=== PATIENT | male | born 1940 | race Asian ===

== ENCOUNTER 2019-11-30 12:07 | Emergency (ER) | payer MEDICARE, OTHER ==
[~2019-11-30] VITALS: Ht 165.1 cm; Wt 65.8 kg
--- NOTE | 2019-11-30 12:18 | NUR ---
ED Nurse Note: pt ambulated to ed c/o right thumb laceration s/p finger benig slammed by door. Finger is actively bleeding. dressed in triage and controlled bleeding.
[2019-11-30 12:19] VITALS: BP 193/93
[2019-11-30] MEDS ORDERED: Tetanus/Diptheria/Pertussis IM ONE (13:00)
[2019-11-30] MEDS ORDERED: Lidocaine 1% Plain 30 ml INJ ONE ×2 (13:14→13:15)
[2019-11-30] MEDS ORDERED: Surgicel 4in x 8in TOPIC ONE ×2 (13:15→14:15)
--- NOTE | 2019-11-30 13:31 | NUR ---
ED Nurse Note: x-ray at bedside done.
--- NOTE | 2019-11-30 14:00 | Diagnostic Imaging Report ---
EXAM: XR Right Fingers, 2 or More Views CLINICAL HISTORY: TRAUMA TECHNIQUE: Frontal, lateral and oblique views of the fingers of the right hand. COMPARISON: No relevant prior studies available. FINDINGS: Bones/joints: No acute fracture. Osteopenic. Slight deformity of the distal radial metaphysis appears to be chronic, likely old fracture. 1.8 cm in size expansile lesion dorsal tip of the radius with chondroid type matrix. No dislocation. Soft tissues: Soft tissue irregularity of distal thumb may be laceration. No radiopaque foreign body. IMPRESSION: 1. Osteopenic. No definite acute fracture or malalignment. 2. Soft tissue irregularity of distal thumb may be laceration. 3. Slight deformity of the distal radial metaphysis appears to be chronic, likely old fracture. 4. 1.8 cm in size expansile lesion dorsal tip of the radius with chondroid type matrix. This does not appear to be particularly aggressive. Differential may include chronic posttraumatic remodeling, osteochondroma, though somewhat atypical appearance. Consider CT imaging.
[2019-11-30 14:19] VITALS: BP 188/95
--- NOTE | 2019-11-30 14:30 | NUR ---
clinicals faxed to [facility] and spoke to [facility] transfer cordinator. per melinda she will call us back
--- NOTE | 2019-11-30 14:50 | Emergency Room Report ---
History of Present Illness General Chief Complaint: Laceration Source: Significant Other (Josette Topete) Present Illness HPI 79-year-old male who reports not having any past medical history not taking any medication here due to a laceration the right thumb. Patient first reported that it happened after slamming the door however told me that happened with a knife. Patient refuses bleeding and a spiral 2 cm laceration noted on right patient has full range of motion of the affected area. Denies any tingling and numbness. Patient is neurovascularly intact. Has not taken medication for symptom relief. Patient already has a drops of blood coming in here. Surgicel was applied to minimize the bleeding. Denies all other injuries. Denies chest pain, shortness of breath, headache and dizziness. Translation services were contacted. Patient understands that this needs a higher level of care and needs to be repaired by a specialist. Patient does not know the Tdap status and Tdap was given here today (Josette Topete) Allergies: Coded Allergies: No Known Allergies (Unverified , 11/30/19) COVID-19 Screening Contact w/high risk pt: No Recent Travel to affected area: No Experienced COVID-19 symptoms?: No COVID-19 Testing performed ASSEMBLY INSPECTOR: No (Josette Topete) Patient History Past Medical History: see triage record Past Surgical History: none Pertinent Family History: none Immunizations: UTD Reviewed Nursing Documentation: PMH: Agreed; PSxH: Agreed (Josette Topete) Nursing Documentation-PMH Past Medical History: No Stated History (Josette Topete) Review of Systems All Other Systems: negative except mentioned in HPI (Josette Topete) Physical Exam Vital Signs Date Time Temp Pulse Resp B/P (MAP) Pulse Ox O2 Delivery O2 Flow Rate FiO2 11/30/19 12:09 97.9 80 16 193/93 (126) 99 Room Air Sp02 EP Interpretation: reviewed, normal General Appearance: no apparent distress, alert, GCS 15, non-toxic Head: normocephalic, atraumatic Eyes: bilateral eye normal inspection, bilateral eye PERRL ENT: hearing grossly normal, normal pharynx, no angioedema, normal voice Neck: full range of motion, supple/symm/no masses Respiratory: chest non-tender, lungs clear, normal breath sounds, no rhonchi, no respiratory distress, no retraction, no wheezing, speaking full sentences Cardiovascular #1: regular rate, rhythm, no edema, no murmur Cardiovascular #2: 2+ carotid (R), 2+ carotid (L), 2+ radial (R), 2+ radial (L) Gastrointestinal: normal bowel sounds, non tender, soft, non-distended, no guarding, no rebound Genitourinary: no CVA tenderness Musculoskeletal: back normal, other - Deep laceration right thumb with profuse amount of bleeding into the muscle Neurologic: alert, motor strength/tone normal, oriented x3, sensory intact, responsive, speech normal Psychiatric: judgement/insight normal, memory normal, mood/affect normal, no suicidal/homicidal ideation Skin: laceration - right thumb to the muscle, spiral Lymphatic: no adenopathy (Josette Topete) Medical Decision Making PA Attestation All diagnoses and treatment plans were reviewed and discussed with my supervising physician Dr. Bar (Josette Topete) PA Attestation I participated in the care of this patient along with KIRBY Gutierrez Briefly, this is a 79-year-old male presenting for evaluation of laceration to his thumb. Patient is right-hand dominant. Unclear how the injury actually occurred. He initially reported injury in a car door and then with the use of an community leader phone told KIRBY Gutierrez it occurred with a knife. Patient was given antibiotics. Complex laceration involving his dominant hand. Unable to arrange for orthopedic or plastic surgery evaluation. He will require hand consult and transfer to [facility]. (Celestino Bar MD) Diagnostic Impression: Primary Impression: Laceration of thumb with damage to nail ER Course 79-year-old male who reports not having any past medical history not taking any medication here due to a laceration the right thumb. Patient first reported that it happened after slamming the door however told me that happened with a knife. Patient refuses bleeding and a spiral 2 cm laceration noted on right patient has full range of motion of the affected area. Denies any tingling and numbness. Patient is neurovascularly intact. Has not taken medication for symptom relief. Patient already has a drops of blood coming in here. Surgicel was applied to minimize the bleeding. Denies all other injuries. Denies chest pain, shortness of breath, headache and dizziness. Translation services were contacted. Patient understands that this needs a higher level of care and needs to be repaired by a specialist. Patient does not know the Tdap status and Tdap was given here today Ddx considered but are not limited to : Superficial laceration, deep laceration , tendon involvement with laceration, laceration with foreign body Vital signs: are WNL, pt. is afebrile H&PE are most consistent with: Deep laceration right thumb into the muscle ORDERS: Hand x-ray, CBC, CMP, PT PTT INR, ED INTERVENTIONS: Tdap, Ancef Patient to be transferred to [facility] with diagnosis of deep laceration of right thumb for higher level of care under supervision of : Yosvany pt stable at time of transfer (Josette Topete) Other X-Ray Diagnostic Results Other X-Ray Diagnostic Results : X-Ray ordered: right finger # of Views/Limited Vs Complete: 3 View Indication: Pain EP Interpretation: Yes PA Xray: Interpretation reviewed, by supervising MD, and agrees with findings. Interpretation: no dislocation, no soft tissue swelling, no fractures Impression: No acute disease Electronically Signed by: Josette ORR Scribe Text FINDINGS: Bones/joints: No acute fracture. Osteopenic. Slight deformity of the distal radial metaphysis appears to be chronic, likely old fracture. 1.8 cm in size expansile lesion dorsal tip of the radius with chondroid type matrix. No dislocation. Soft tissues: Soft tissue irregularity of distal thumb may be laceration. No radiopaque foreign body. IMPRESSION: 1. Osteopenic. No definite acute fracture or malalignment. 2. Soft tissue irregularity of distal thumb may be laceration. 3. Slight deformity of the distal radial metaphysis appears to be chronic, likely old fracture. 4. 1.8 cm in size expansile lesion dorsal tip of the radius with chondroid type matrix. This does not appear to be particularly aggressive. Differential may include chronic posttraumatic remodeling, osteochondroma, though somewhat atypical appearance. Consider CT imaging. (Josette Topete) Last Vital Signs Date Time Temp Pulse Resp B/P (MAP) Pulse Ox O2 Delivery O2 Flow Rate FiO2 11/30/19 12:19 97.9 89 16 193/93 99 Room Air (Josette Topete) Disposition: SHORT-TERM HOSP Condition: Serious Scripts No Active Prescriptions or Reported Meds Referrals: NON PHYSICIAN (PCP) Josette Topete Nov 30, 2019 14:50 Celestino Bar MD Nov 30, 2019 15:16
[2019-11-30 14:51] LABS: BASOPHILS % (AUTO) 0.7 % (0.0-2.0); EOSINOPHILS % (AUTO) 0.2 % (0.0-3.0); HEMATOCRIT 48.2 % (42.0-52.0); HEMOGLOBIN 16.2 G/DL (14.2-18.0); LYMPHOCYTES % (AUTO) 18.2 % (20.0-45.0); MEAN CORPUSCULAR VOLUME 99 FL (80-99); MONOCYTES % (AUTO) 6.3 % (1.0-10.0); NEUTROPHILS % (AUTO) 74.5 % (45.0-75.0); PLATELET COUNT 240 K/UL (150-450); RED BLOOD COUNT 4.85 M/UL (4.70-6.10); WHITE BLOOD COUNT 11.3 K/UL (4.8-10.8)
[2019-11-30 15:01] LABS: ANION GAP 9 mmol/L (5-15); BLOOD UREA NITROGEN 21 mg/dL (7-18); CALCIUM 8.7 MG/DL (8.5-10.1); CARBON DIOXIDE 26 MMOL/L (21-32); CHLORIDE 103 MMOL/L (98-107); CREATININE 1.4 MG/DL (0.55-1.30); POTASSIUM 4.2 MMOL/L (3.5-5.1); SODIUM 138 MMOL/L (136-145)
[2019-11-30 15:04] LABS: INR 0.9 (0.9-1.1)
[2019-11-30 15:06] LABS: ALANINE AMINOTRANSFERASE 23 U/L (12-78); ALBUMIN 3.5 G/DL (3.4-5.0); ALBUMIN/GLOBULIN RATIO 0.8 (1.0-2.7); ALKALINE PHOSPHATASE 85 U/L (46-116); ASPARTATE AMINO TRANSFERASE 15 U/L (15-37); BILIRUBIN,TOTAL 0.4 MG/DL (0.2-1.0)
--- NOTE | 2019-11-30 15:27 | NUR ---
ED Nurse Note: Pt appears restless, constantly walking in and out of room
--- NOTE | 2019-11-30 15:45 | NUR ---
[facility] will admit patient requesting covid-19 testing before transfer
[2019-11-30 16:22] VITALS: BP 180/95
--- NOTE | 2019-11-30 16:46 | NUR ---
ED Nurse Note: Pt waiting in room on his phone calm, comfortable. vss
--- NOTE | 2019-11-30 16:50 | NUR ---
ED Nurse Note: utilized [employer] to translate pt care, barrel rifler operator ID: [id number]
[2019-11-30 17:01] VITALS: BP 177/90
--- NOTE | 2019-11-30 17:08 | NUR ---
ED Nurse Note: [facility] at bedside to hand picker pt and transfer to [facility].
[2019-11-30 17:10] VITALS: BP 159/86
== END 2019-11-30 17:12 | disposition short-term general hospital (02) ==
LOC: EMR 12:39
DX: S61.111A Laceration without foreign body of right thumb with damage to nail, initial encounter (principal); M85.841 Other specified disorders of bone density and structure, right hand; Z23 Encounter for immunization; X58.XXXA Exposure to other specified factors, initial encounter; Y92.9 Unspecified place or not applicable
CPT/HCPCS: 36415; 73140; 80053; 85025; 85610; 85730; 86850; 86900; 86901; 90471; 90715; 96372; 96374; 99284; J0360; J0690; J2001; U0002